=== PATIENT | female | born 1990 | race Hispanic/Latino ===

== ENCOUNTER 2020-02-11 04:46 | Emergency (ER) | payer SELFPAY ==
[~2020-02-11] VITALS: Ht 162.6 cm; Wt 54.4 kg
--- NOTE | 2020-02-11 04:54 | Emergency Department Note ---
History of Present Illnes History of Present Illness Chief Complaint: General Medicine Complaints History of Present Illness This is a 29 year old female with abrupt onset of palpitatoins and CP prior to arrival. . Historian: Patient Arrival Mode: Car Onset (how long ago): minute(s) Location: substernal Radiation: Reports non-radiation Severity: mild Onset quality: sudden Duration (how long): hour(s) Timing of current episode: constant Progression: waxing and waning Chronicity: new Context: Denies recent illness, Denies recent surgery, Denies recent immobi lization, Denies recent travel, Denies trauma/injury, Denies new medications, Denies hx of DVT/PE, Denies non-compliance w/ medications, Denies other Relieving factors: none Exacerbating factors: none Associated symptoms: Reports chest pain Treatments prior to arrival: none Past Medical/Family History Physician Review I have reviewed the patient's past medical and family history. Any updates have been documented here. Past Medical History Recent Fever: No Clinical Suspicion of Infectio: No New/Unexplained Change in Ment: No Past Medical History: None Past Surgical History: None Social History Smoking Cessation: Never Smoker Alcohol Use: None Any Illegal Drug Use: No Review of Systems Review of Systems Constitutional: Reports no symptoms EENTM: Reports no symptoms Cardiovascular: Reports chest pain, Reports palpitations Respiratory: Reports no symptoms Gastrointestinal: Reports no symptoms Genitourinary: Reports no symptoms Musculoskeletal: Reports no symptoms Integumentary: Reports no symptoms Neurological: Reports no symptoms Psychological: Reports no symptoms Endocrine: Reports no symptoms Hematological/Lymphatic: Reports no symptoms Physical Exam Related Data Allergies: Coded Allergies: No Known Allergies (Unverified , 02/11/20) Vital signs reviewed: Yes Physical Exam CONSTITUTIONAL Constitutional: Present well-developed, Present well-nourished HENT HENT: Present normocephalic, Present atraumatic, Present oropharynx clear/moist, Present nose normal HENT L/R: Present left ext ear normal, Present right ext ear normal EYES Eyes: Reports PERRL, Reports conjunctivae normal NECK Neck: Present ROM normal PULMONARY Pulmonary: Present effort normal, Present breath sounds normal CARDIOVASCULAR Cardiovascular: Present regular rhythm, Present heart sounds normal, Present capillary refill normal, Present normal rate GASTROINTESTINAL Abdominal: Present soft, Present nontender, Present bowel sounds normal GENITOURINARY Genitourinary: Present exam deferred SKIN Skin: Present warm, Present dry MUSCULOSKELETAL Musculoskeletal: Present ROM normal NEUROLOGICAL Neurological: Present alert, Present oriented x 3, Present no gross motor or sensory deficits PSYCHOLOGICAL Psychological: Present mood/affect normal, Present judgement normal, Present other Results Laboratory Lab results reviewed: Yes Imaging Imaging results reviewed: Yes Procedures 12 Lead ECG Interpretation ECG Interpretation : ECG: ECG 1 Mica Inspector: Interpreted by ED physician Date: Feb 11, 2020 Time: 05:02 Prior ECG tracings: reviewed Rhythm: sinus rhythm Rate: normal BPM: 89 QRS axis: normal ST segments normal: Yes T waves normal: Yes T waves flattening: all, V1-V6 Other findings: no other findings Clinical Impression: non-specific ECG Assessment & Plan Medical Decision Making MDM Diff Dx : ACS, palpitaitons, anemia, anxiety, illicit drug use, PTX Assessment & Plan Final Impression: (1) Palpitations (2) Anxiety Depart Disposition: HOME, SELF-CARE CAROLINAMEREDITH Feb 11, 2020 04:54
[2020-02-11] MEDS ORDERED: ASPIRIN 81 MG CHEW TAB PO ONE (05:00)
[2020-02-11 05:08] LABS: BASOPHILS % 0.5 % (0.0-1.0); EOSINOPHILS % 0.1 % (0.0-6.0); HEMATOCRIT 36.1 % (34.2-44.1); HEMOGLOBIN 12.3 g/dL (12.0-16.0); LYMPHOCYTES # (AUTO) 2.8 (1.0-3.2); LYMPHOCYTES % 35.7 % (18.0-39.1); MEAN CORPUSCULAR HEMOGLOBIN 28.9 pg (28-32); MEAN CORPUSCULAR HGB CONC 34.1 g/dL (31-35); MEAN CORPUSCULAR VOLUME 84.7 fL (81-99); MONOCYTES # (AUTO) 0.8 (0.2-0.8); MONOCYTES % 9.8 % (4.4-11.3); NEUTROPHILS # (AUTO) 4.2 (2.1-6.9); NEUTROPHILS % 53.6 % (38.7-80.0); PLATELET COUNT 229 x10e3/uL (140-360); RED BLOOD COUNT 4.26 x10e6/uL (3.6-5.1); RED CELL DISTRIBUTION WIDTH 14.6 % (11.7-14.4)
--- NOTE | 2020-02-11 05:10 | NUR ---
pt given specimen cup to collect urine per orders. pt went bathroom,then moments later knocked on triage door stating that she did not get a specimen cup. to bathroom c patient, specimen cup found in trash. second cup provided for specimen. pt repeated also placed cup in trash and then came to triage door stating "i dont know why you are exceptioning me." "Those things that they said arent nice, and my parts analyst will hear about it too." pt noted anxious and paranoid. attempted to calm down. pt escorted to room [address] on bedside monitor.
--- OUTSIDE RECORDS SUMMARY | 2020-02-11 05:17 | XMS REPORT | Continuity of Care Document ---
Author Author [facility] t Organization [facility] Address [address] [place] [address] Phone Unavailable Care Team Providers Care Supplier Quality Name Role Phone EVANGELINA KELLOGG M.D. Attphys Unavailable DUNIA MORROW M.D. Attphys Unavailable NANNETTE DE LEON M.D. Attphys Unavailable OMAR FERREIRA M.D. Attphys Unavailable VINOD CRUZ M.D. Attphys Unavailable AVIS BOSS M.D. Attphys Unavailable Katie Parish Attphys Payers Payer Name Policy Type Policy Number Effective Date Expiration Date S ource Problems Condition Name Condition Details Condition Category Status Onset Date Resolution Date Last Treatment Date Treating Clinician Comments Source DIFFICULTY BREATHING DIFF ICULTY BREATHING Active 02/01/2016 [facility] Active 2016-02-01 00:00:00 2016-02-19 11:20:00 [facility] History of anxiety History of anxiety Problem Resolved [facility] History of depression History of depression Problem Resolved [facility] Problem Active [facility] Depression [facility]omnia Ins[facility] Limited care Limited care Problem Active [facility] Anemia in Anemia in Problem Active [facility] Vaginal discharge Vaginal discharge Problem Active [facility] follow-up follow-up Problem Active [facility] Discharge Diagnosis: Atypical chest pain Discharge Diagnosis: Atypical chest pain 02/01/2016 02/04/2016 [facility] Problem 2016-02-01 05:00:00 2016-02-04 04:28:15 2016-02-04 04:28:15 [facility] Discharge Diagnosis: Anxiety D ischarge Diagnosis: Anxiety 02/01/2016 02/04/2016 [facility] Problem 2015-03 05:00:00 2016-02-04 04:28:15 2016-02-04 04:28:15 [facility] Allergies, Adverse Reactions, Alerts Allergy Name Allergy Type Status Severity Reaction(s) Onset Date Inacti ve Date Treating Clinician Comments Source No Known Allergies DA Active U 2017-11-03 00:00:00 [facility] Social History Smoking Status Start Date Stop Date Source Social History [facility] Medications Ordered Medication Name Filled Medication Name Start Date Stop Da te Current Medication? Ordering Clinician Indication Dosage Frequency Signature (SIG) Comments Components Source Sertraline HCl - 25 MG Oral Tablet Sertraline HCl - 25 MG Or al Tablet 2019-05-26 00:00:00 Yes EVANGELINA KELLOGG M.D. QD TAKE 1 TABLET ROYAL Y DIRECTED. [facility] Ferrous Sulfate 325 (65 Fe) MG Oral Tablet Ferrous Sul fate 325 (65 Fe) MG Oral Tablet 2019-03-13 00:00:00 Yes DUNIA MORROW M.D. QD TAKE 1 TABLET DAILY DIRECTED. [facility] Colace 100 MG Oral Capsule Colace 100 MG Oral Capsule 2019-03-13 00:0 0:00 Yes DUNIA MORROW M.D. Q0.5D TAKE 1 CAPSULE TWICE GURPREET LY NEEDED. [facility] Sertraline HCl - 50 MG Oral Tablet Sertraline HCl - 50 MG Or al Tablet 2019-02-11 00:00:00 Yes AVIS BOSS M.D. QD TAKE 1 TABLET DAILY A S DIRECTED. [facility] Tylenol PM Extra Strength 500-25 MG Oral Tablet Tyleno l PM Extra Strength 500-25 MG Oral Tablet 2019-02-11 00:00:00 Yes AVIS BOSS M.D. TAKE 1 TABLET BY MOUTH AT BEDTIME NEEDED FOR SLEEP [facility] Sodium Chloride 0.154 MEQ/ML Injectable Solution 2016-02-01 15:4 7:00 No 1,000 mL, 2,000 ml/hr, Infus e Over: 30 minutes, Route: IV, ONCE, Priority: STAT, Dosing Weight 54.545 kg, Start date: 02/01/16 10:47:00 CDT, Duration: 1 doses or times, Stop date: 02/01/16 10:47:00 CDT Hubert Jean-Baptiste Alprazolam 0.5 MG Oral Tablet [Xanax] 2016-02-01 15:38:00 N o Notes: With food or milk (Same as: Xanax) Memor michael Jean-Baptiste TABS TABS Yes [facility] Immunizations Ordered Immunization Name Filled Immunization Name Date Status Comments Source Tdap (Adacel) 2019-02-11 16:31:00 Completed Un [facility] Vital Signs Vital Name Observation Time Observation Value Comments Source Systolic blood pressure 2019-05-26 14:20:00 115 mm[Hg] Loca tion: RUE; Position: Sitting [facility] Diastolic blood pressure 2019-05-26 14:20:00 74 mm[Hg] Loc ation: RUE; Position: Sitting [facility] Body height 2019-05-26 14:20:00 64 [in_us] [facility] Weight 2019-05-26 14:20:00 140.25 [lb_av] [facility] Body mass index (BMI) [Ratio] 2019-05-26 14:20:00 24.07 kg/m2 [facility] Body temperature 2019-05-26 14:20:00 98.6 [degF] Method: Temporal [facility] Heart Rate 2019-05-26 14:20:00 80 /min [facility] Respiratory rate 2019-05-26 14:20:00 16 /min [facility] BP Systolic 2019-03-10 14:24:00 132 mm[Hg] Location: RUE; Positi on: Sitting [facility] BP Diastolic 2019-03-10 14:24:00 77 mm[Hg] Location: RUE; Positi on: Sitting [facility] Height 2019-03-10 14:24:00 64 [in_us] [facility] Weight 2019-03-10 14:24:00 148.25 [lb_av] [facility] Body Mass Index Calculated 2019-03-10 14:24:00 25.45 kg/m2 [facility] Temperature 2019-03-10 14:24:00 97.7 [degF] Method: Temporal [facility] Heart Rate 2019-03-10 14:24:00 97 /min [facility] Respiration Rate 2019-03-10 14:24:00 16 /min [facility] BP Systolic 2019-02-11 15:42:00 111 mm[Hg] Location: ANEL; Positi on: Sitting [facility] BP Diastolic 2019-02-11 15:42:00 74 mm[Hg] Location: LUJosh; Positi on: Sitting [facility] Height 2019-02-11 15:42:00 64 [in_us] [facility] Weight 2019-02-11 15:42:00 145 [lb_av] [facility] Body Mass Index Calculated 2019-02-11 15:42:00 24.89 kg/m2 [facility] Temperature 2019-02-11 15:42:00 98.1 [degF] Method: Temporal [facility] Heart Rate 2019-02-11 15:42:00 90 /min [facility] Respiration Rate 2019-02-11 15:42:00 16 /min [facility] Systolic (mm Hg) 2016-02-01 16:28:00 [facility] [facility] [place] Diastolic (mm Hg) 2016-02-01 16:28:00 [facility] [place] Heart Rate 2016-02-01 16:28:00 [facility] Temperature Oral (F) 2016-02-01 16:28:00 98 F [facility] Respitory Rate 2016-02-01 16:28:00 [facility] [place] BMI Calculated 2016-02-01 15:02:00 [facility] [place] Weight 2016-02-01 15:02:00 [facility] Temperature Oral (F) 2016-02-01 15:02:00 98.2 F [facility] Height 2016-02-01 15:02:00 157.48 cm [facility] Respitory Rate 2016-02-01 15:02:00 [facility] [place] Heart Rate 2016-02-01 15:02:00 [facility] Systolic (mm Hg) 2016-02-01 15:02:00 [place] rial [place] Diastolic (mm Hg) 2016-02-01 15:02:00 Mem [facility] [place] Procedures Procedure Date / Time Performed Performing Clinician Kassi CAMERONath - Affirm VPIII (BV Panel) 2019-05-26 00:00:00 [facility] [] STREPTOCOCCUS, GROUP B CULTURE (Genital Strep Screen) 2 00:00:00 [facility] [[facility]] RPR 2019-02-11 00:00:00 [facility] [[facility]] CBC (INCLUDES DIFF/PLT) 2019-02-11 00:00:00 [facility] [] HIV AB, HIV 1/2, EIA, WITH REFLEXES 2019-02-11 00:00:00 [facility] [[facility]] CULTURE, URINE, ROUTINE 2019-02-11 00:00:00 [facility] [] Drug Screen Urine (9 Drugs) 2019-02-11 00:00:00 [facility] Encounters Start Date/Time End Date/Time [facility] ID Source 2019-06-02 10:15:00 2019-06-02 10:15:00 Appointment; EVANGELINA KELLOGG M.D. DUBOVOY, VERA, M.D. [facility] [id number] [facility] 2019-05-26 11:30:00 2019-05-26 11:30:00 Appointment; EVANGELINA KELLOGG M.D. DUBOVOY, VERA, M.D. [facility] Ob[facility]s [facility] [id number] [facility] 2019-03-16 09:00:00 2019-03-16 09:00:00 Appointment; DUNIA OTT M.D. WAINWRIGHT, ALEXANDER, M.D. [facility] [id number] [facility] 2019-03-10 13:30:00 2019-03-10 13:30:00 Appointment; DUNIA OTT M.D. WAINWRIGHT, ALEXANDER, M.D. [facility] [id number] [facility] 2019-03-10 13:30:00 2019-03-10 13:30:00 Appointment; NANNETTE DE LEON M.D. BAKER, ANDREA, M.D. [facility] UTP [id number] [facility] 2019-03-03 10:15:00 2019-03-03 10:15:00 Appointment; ENID FERREIRA M.D. HUANG, CHENCHEN, M.D. [facility] UTP [id number] [facility] 2019-02-28 15:45:00 2019-02-28 15:45:00 Appointment; WOLFGANG CRUZ M.D. GUTIERREZ, JULIE, M.D. [facility] [id number] [facility] 2019-02-11 15:15:00 2019-02-11 15:15:00 Appointment; AVIS BOSS M. D. NGUYEN, HA, M.D. [facility] Ob[facility]s [facility] [id number] [facility] 2016-02-01 09:52:00 2016-02-01 11:29:00 Outpatient Elodia Parish [facility] [place] [id number] Results Test Description Test Time Test Comments Results Result Comments Source . [facility] - Affirm VPIII (BV Panel) 2019-05-26 00:00:00 Test Item Case (test code = Case) Click ImageLink button for report. N [facility]] CBC (INCLUDES DIFF/PLT)2019-03-10 14:42:01* Test Item Value Reference Range Interpretation Comments WBC (test code = 6690-2) 10.3 {K/CMM} 3.7-10.4 RBC; Below Low Threshold (test code = 789-8) 3.76 {M/CMM} 4.20-5.40 Hgb; Below Low Threshold (test code = 718-7) 10.7 g/dl 12.0-16.0 Hct; Below Low Threshold (test code = 77110-8) 31.6 % 36.0-48 .0 MCV (test code = 787-2) 84.2 fL 80.0-98.0 MCH (test code = 785-6) 28.5 pg 27.0-31.0 MCHC (test code = 786-4) 33.8 g/dl 32.0-36.0 RDW; Above High Threshold (test code = 788-0) 15.6 % 11.5-14. 5 Platelet (test code = 26012-1) 246 {K/CMM} 133-450 Mean Platelet Volume (test code = 54132-4) 8.7 fL 7.4-10.4 [facility]] [id number] 14:42:01* Test Item Value Reference Range Interpretation Comments Segmented Neutrophils; Above High Threshold (test code = 265 05-8) 75.2 % 45.0-75.0 Monocytes (test code = 05418-2) 4.7 % 2.0-12.0 Lymphocytes; Below Low Threshold (test code = 78079-4) 19.4 % 20.0-40.0 Eosinophils (test code = 11321-9) 0.4 % 0.0-4.0 Basophils (test code = 706-2) 0.3 % 0.0-1.0 Segs-Bands # (test code = 30019-0) 7.8 {K/CMM} 1.5-8.1 Lymphocytes # (test code = 61417-8) 2.0 {K/CMM} 1.0-5.5 Monocytes # (test code = 26309-1) 0.5 {K/CMM} 0.0-0.8 [facility][] HIV AB, HIV 1/2, EIA, WITH [id number] 14:42:01* Test Item Value Reference Range Interpretation Comments HIV Ag/Ab 4th Gen (test code = 30678-7) Negative Negative HIV test results should be considered positive only when both the screening andthe confirmatory tests are positive. A negative confirmatory test in patientswith a positive screening test does not exclude HIV infection. If clincallywarranted, an HIV RNA quantitative test should be ordered. [facility][H] Drug Screen Urine (9 Drugs)2019-03-10 14:42:01 * Test Item Value Reference Range Interpretation Comments U Amph Scr (test code = 3349-8) Negative Negative Urine Barbiturate Screen (test code = 3377-9) Negative Negative Urine Benzodiazepine Screen (test code = 3390-2) Negative Negat isai Urine Cannabinoid Screen (test code = 3427-2) Negative Negative Urine Cocaine Screen (test code = 3397-7) Negative Negative Urine Methadone Screen (test code = 3773-9) Negative Negative Urine Opiate Screen (test code = 3879-4) Negative Negative Urine Phencyclidine Screen (test code = 3936-2) Negative Negati ve Urine Propoxyphene Screen (test code = 01298-4) Negative Negati ve Urine Drug Screen Note (test code = Urine Drug Screen Note) See Not e Drugs reported as positive have not been confirmed by a secondmethod and should be used for medical purposes only. To orderconfirmation, contact laboratory.note: Below are cut-off concentrations for all urine drugs ofabuse performed in the laboratory. Some drugs listed in the tablemay not be included in this panel.Description Cut-off concentration Amphetamine 1000 ng/mLBarbiturates 200 ng/mLBenzodiazepines 200 ng/mLCocaine metabolites 300 ng/mLOpiates 300 ng/mLPhencyclidine 25 ng/mLPropoxyphene 300 ng/mLMarijuana metabolites 50 ng/mLMethadone 300 ng/mLUrine alcohol 20 mg/dL [facility]] [id number] 14:42:01* Test Item Value Reference Range Interpretation Comments RPR (test code = 07605-4) Non-Reactive Non-Reactive [facility][] STREPTOCOCCUS, GROUP B CULTURE (Genital Strep Screen)2019-03-10 14:42:01* Test Item Value Reference Range Interpretation Comments FINAL REPORT (test code = FINAL REPORT) No Beta-Hemolytic St reptococci Isolated Source Details: WTS [facility]iciansGlucose (Point of Care In Office)2019-03-10 14:31:00* Test Item Value Reference Range Interpretation Comments Glucose POC [facility] (test code = Glucose POC [facility]) [address] [facility] PhysiciansDRUGS OF ABUSE SCREEN [id number] 03:54:00* Test Item Value Reference Range Interpretation Comments UA PH DIPSTICK (test code = RAEGAN) 6.5 5.0-8.0 URN COCAINE (test code = COCAURN) NEGATIVE <300 ng/mL URN CANNABINOIDS (test code = CANNABURN) NEGATIVE <50 ng/mL URN AMPHETAMINE (test code = AMPHETURN) POSITIVE <1000 ng/mL A This test provides only a preliminary test result. A morespecific alternate chemical method must be used in order toobtain a confirmed analytical result. Gas chromatography/mass spectrometry (GC/MS) is thepreferred confirmatory method. Other chemical confirmationmethods are available. Clinical consideration and professional judgment should be applied to any drug of abusetest result, particularly when preliminary positive resultsare used.Unconfirmed screening results must not be used fornon-medical purposes (e.g., employment testing, legaltesting). URN BARBITURATE (test code = BARBITURN) NEGATIVE <200 ng/mL URN BENZODIAZEPINE (test code = BENZOURN) POSITIVE <200 ng/mL A This test provides only a preliminary test result. A morespecific alternate chemical method must be used in order toobtain a confirmed analytical result. Gas chromatography/mass spectrometry (GC/MS) is thepreferred confirmatory method. Other chemical confirmationmethods are available. Clinical consideration and professional judgment should be applied to any drug of abusetest result, particularly when preliminary positive resultsare used.Unconfirmed screening results must not be used fornon-medical purposes (e.g., employment testing, legaltesting). URN OPIATES (test code = OPIATURN) POSITIVE <300 ng/mL A This test provides only a preliminary test result. A morespecific alternate chemical method must be used in order toobtain a confirmed analytical result. Gas chromatography/mass spectrometry (GC/MS) is thepreferred confirmatory method. Other chemical confirmationmethods are available. Clinical consideration and professional judgment should be applied to any drug of abusetest result, particularly when preliminary positive resultsare used.Unconfirmed screening results must not be used fornon-medical purposes (e.g., employment testing, legaltesting). URN PHENCYCLIDINE (PCP) (test code = PHENCURN) NEGATIVE <25 ng/ mL URN METHADONE (test code = METHAURN) NEGATIVE <300 ng/mL DRUGS OF ABUSE SCREEN [id number] 03:53:00* Test Item Value Reference Range Interpretation Comments UA PH DIPSTICK (test code = RAEGAN) 5.0-8.0 URN COCAINE (test code = COCAURN) NEGATIVE <300 ng/mL URN CANNABINOIDS (test code = CANNABURN) NEGATIVE <50 ng/mL URN AMPHETAMINE (test code = AMPHETURN) POSITIVE <1000 ng/mL A This test provides only a preliminary test result. A morespecific alternate chemical method must be used in order toobtain a confirmed analytical result. Gas chromatography/mass spectrometry (GC/MS) is thepreferred confirmatory method. Other chemical confirmationmethods are available. Clinical consideration and professional judgment should be applied to any drug of abusetest result, particularly when preliminary positive resultsare used.Unconfirmed screening results must not be used fornon-medical purposes (e.g., employment testing, legaltesting). URN BARBITURATE (test code = BARBITURN) NEGATIVE <200 ng/mL URN BENZODIAZEPINE (test code = BENZOURN) POSITIVE <200 ng/mL A This test provides only a preliminary test result. A morespecific alternate chemical method must be used in order toobtain a confirmed analytical result. Gas chromatography/mass spectrometry (GC/MS) is thepreferred confirmatory method. Other chemical confirmationmethods are available. Clinical consideration and professional judgment should be applied to any drug of abusetest result, particularly when preliminary positive resultsare used.Unconfirmed screening results must not be used fornon-medical purposes (e.g., employment testing, legaltesting). URN OPIATES (test code = OPIATURN) POSITIVE <300 ng/mL A This test provides only a preliminary test result. A morespecific alternate chemical method must be used in order toobtain a confirmed analytical result. Gas chromatography/mass spectrometry (GC/MS) is thepreferred confirmatory method. Other chemical confirmationmethods are available. Clinical consideration and professional judgment should be applied to any drug of abusetest result, particularly when preliminary positive resultsare used.Unconfirmed screening results must not be used fornon-medical purposes (e.g., employment testing, legaltesting). URN PHENCYCLIDINE (PCP) (test code = PHENCURN) NEGATIVE <25 ng/ mL URN METHADONE (test code = METHAURN) NEGATIVE <300 ng/mL URINALYSIS [id number] 03:26:00* Test Item Value Reference Range Interpretation Comments UA COLOR (test code = COLU) YELLOW YELLOW UA APPEARANCE (test code = APPU) Cloudy CLEAR A UA GLUCOSE DIPSTICK (test code = DGLUU) NEGATIVE mg/dL NEGATIVE UA BILIRUBIN DIPSTICK (test code = BILU) NEGATIVE mg/dL NEGATIVE UA KETONE DIPSTICK (test code = KETU) 150 (4+) mg/dL NEGATIVE A UA SPECIFIC GRAVITY (test code = SGU) 1.034 1.001-1.035 UA BLOOD DIPSTICK (test code = YADIRA) Negative mg/dL NEGATIVE UA PH DIPSTICK (test code = RAEGAN) 6.5 5.0-8.0 UA PROTEIN DIPSTICK (test code = PROU) 100 (2+) mg/dL NEGATIVE A UA UROBILINIOGEN DIPSTICK (test code = URO) 12.0 (3+) mg/dL NEGATIV E A UA NITRITE DIPSTICK (test code = RADHA) NEGATIVE NEGATIVE UA LEUKOCYTE ESTERASE W REFLEX (test code = LEUUR) 500 Corrine/u L (3+) Corrine/uL NEGATIVE A UA WBC (test code = WBCU) 151-200 per HPF 0-5 A UA RBC (test code = RBCU) 11-20 #/HPF 0-5 A UA EPITHELIAL CELLS (test code = EPIU) MANY per HPF FEW UA BACTERIA (test code = BACU) MANY #/HPF NONE A UA MUCUS (test code = MUCU) MANY #/LPF FEW A Urine Source? [facility] [id number] 02:39:00* Test Item Value Reference Range Interpretation Comments WHITE BLOOD CELL (test code = WBC) 6.3 K/mm3 4.5-12.5 N RED BLOOD CELL (test code = RBC) 4.02 mill/mm3 3.7-5.2 N HEMOGLOBIN (test code = HGB) 12.3 gram/dL 11.5-15.5 N HEMATOCRIT (test code = HCT) 36.8 % 36.0-46.0 N MEAN CELL VOLUME (test code = MCV) 91.5 fL 80-98 N MEAN CELL HGB (test code = MCH) 30.6 picogram 27.0-33.0 N MEAN CELL HGB CONCETRATION (test code = MCHC) 33.4 gram/dL 33.0-36. 0 N RED CELL DISTRIBUTION WIDTH (test code = RDW) 13.4 % 11.6-16. 2 N PLATELET COUNT (test code = PLT) 264 K/mm3 150-450 N MEAN PLATELET VOLUME (test code = MPV) 11.0 fL 6.7-11.0 N BASIC METABOLIC [id number] 02:06:00* Test Item Value Reference Range Interpretation Comments SODIUM (test code = NA) 140 mmol/L 136-145 N POTASSIUM (test code = K) 3.7 mmol/L 3.5-5.1 N CHLORIDE (test code = CL) 108.0 mmol/L 98-107 H CARBON DIOXIDE (test code = CO2) 21.0 mmol/L 21-32 N ANION GAP (test code = GAP) 14.7 10-20 N GLUCOSE (test code = GLU) 68 mg/dL 74-106 L BLOOD UREA NITROGEN (test code = BUN) 8 mg/dL 7-18 N GLOMERULAR FILTRATION RATE (test code = GFR) > 60 mL/min >=60 Estimated GFR by using Modified MDRD formula.Chronic kidney disease is defined as either kidney damageor GFR <60 mL/min/1.73 m2 for >3 months. CREATININE (test code = CREAT) 0.50 mg/dL 0.55-1.02 L Note change in reference range due to change in reagent. BUN/CREATININE RATIO (test code = BUN/CREA) 14.6 10-20 N CALCIUM (test code = CA) 8.6 mg/dL 8.5-10.1 N HCG SERUM [id number] 02:06:00* Test Item Value Reference Range Interpretation Comments HCG SERUM BETA (test code = HCG) 92711.0 mIU/mL 0-3 H Interfering substances present in the serum of somepatients may cause a false-positive result in this assay.Questionable elevations in serum hCG should be confirmedwith a urine hCG. Suspected Trophoblastic Neoplasms shouldnot be diagnosed based on serun hCG/beta hCG alone. Theymust be confirmed by clinical history and tissue diagnosis.INTERPRETATION:B-HCG LEVELS <5 SHOULD BE CONSIDERED "NEGATIVE." *WHEN BODERLINE RESULTS ARE ENCOUNTERED,PATIENT SAMPLESSHOULD BE REDRAWN 48 HOURS. 0-1 WEEKS AFTER CONCEPTION 5-50 MIU/ML1-2 WEEKS AFTER CONCEPTION 50-500 MIU/ML2-3 WEEKS AFTER CONCEPTION 100 -5,000 MIU/ML3-4 WEEKS AFTER CONCEPTION 500-10,000 MIU/ML4-5 WEEKS AFTER CONCEPTION 1000 -50,000 MIU/ML5-6 WEEKS AFTER CONCEPTION 10,000-100,000 MIU/ML6-8 WEEKS AFTER CONCEPTION 15,000- 200,000 MIU/ML2-3 MONTHS AFTER CONCEPTION 10,000-100,000 MIU/ML BASIC METABOLIC [id number] 01:46:00* Test Item Value Reference Range Interpretation Comments SODIUM (test code = NA) 140 mmol/L 136-145 N POTASSIUM (test code = K) 3.7 mmol/L 3.5-5.1 N CHLORIDE (test code = CL) 108.0 mmol/L 98-107 H CARBON DIOXIDE (test code = CO2) mmol/L 21-32 ANION GAP (test code = GAP) 10-20 GLUCOSE (test code = GLU) mg/dL 74-106 BLOOD UREA NITROGEN (test code = BUN) mg/dL 7-18 GLOMERULAR FILTRATION RATE (test code = GFR) mL/min >=60 CREATININE (test code = CREAT) mg/dL 0.55-1.02 BUN/CREATININE RATIO (test code = BUN/CREA) 10-20 CALCIUM (test code = CA) mg/dL 8.5-10.1 HCG SERUM [id number] 01:46:00* Test Item Value Reference Range Interpretation Comments HCG SERUM BETA (test code = HCG) mIU/mL 0-3 [id number] 01:46:00* Test Item Value Reference Range Interpretation Comments ALCOHOL (test code = ALC) < 3 mg/dL 0.0-3.0 N -- INTERPRETIVE DATA NOTE: POSITIVE SCREENING RESULTS SHOULD BE CONSIDERED PRESUMPTIVE.WHEN COLLECTED FOR MEDICAL PURPOSES ONLY. SPECIMEN WILL NOTBE COLLECTED BY CHAIN OF CUSTODY.IF A CONFIRMATION OF POSITIVE RESULTS IS DESIRED, ACONFIRMATION TEST MUST BE REQUESTED BY THE PHYSICIAN AT ANADDITIONAL CHARGE TO THE PATIENT. - US PREG 1ST [id number] 01:40:00 Name: DALTON HARRIS [facility] : 1990 Age/S: 28 / F [address] [facility] Unit #: [id number] Loc: [place] [address] Phys: Juan Hale SUPERVISOR DELIVERY DEPARTMENT Acct: [id number] Dis Date: Status: REG ER PHONE #: [phone] Exam Date: 10/21/2018 0112 FAX #: [phone] Reason: VAGINAL BLEEDING/PELVIC PAIN EXAMS: CPT CODE: [id number] US PREG 1ST TRIMTR [id number] DICTATION LOCATION: 8 HISTORY: Female, 28 years of age with pelvic pain and vaginal bleeding during 2nd trimester EXAM: OB ULTRASOUND, LIMITED COMPARISON: None for this . TECHNIQUE: Real-time sonography was performed transabdominally with the 4 MHz transducer. FINDINGS: Number: Mccoy Presentation: Transverse Placenta: anterior, Grade 1. No placental abruption or subchorionic hemorrhage. There appears to be marginal placenta previa. Cervix: Closed, measuring 2.93 cm length. MILLIE: Not calculated, how ever amniotic fluid volume is subjectively adequate. Ovaries: Right ovary is normal size measuring 2.1 x 1.6 x 1.8 cm with arterial flow docum ented with Doppler. Left ovary is not visualized. No adnexal mass. Anatomic Survey: No formal anatomic survey was done. heart ra te: 134 BPM Average sonographic age of the fetus is 17 weeks 2 days with E DC of 03/29/2019 based on the following: Biparietal diameter: 17 wee ks 2 days Head circumference: 17 weeks 2 days Abdominal circumferenc e: 17 weeks 2 days Femur length: 17 weeks 2 days Estimated f etal weight: 189.12 grams +/- 28.37 grams weight percentile: Less th an 3 % based on LMP 05/28/2018, gestational age by dates 20 weeks 6 days, ED D by dates 03/04/2019. IMPRESSION: 1. Single living intr auterine fetus at 17 weeks 2 days sonographic age. Ultrasound age is les s than dates and weight percentile is low at less than 3%. Incorre ct dates versus IUGR. 2. No subchorionic hemorrhage or placental abrupti on. 3. There is questionable marginal placenta previa and the measuremen t of the cervix is short at 2.93 cm. Recommend translabial or tr ansvaginal ultrasound to further evaluate these findings. PAGE 1 Signed Report (CONTINUED) Name: DALTON HARRIS [facility] : 1990 Age/S: 28 / F [address] Unit #: [id number] Loc: [place] [address] Phys: Juan Hale SUPERVISOR DELIVERY DEPARTMENT Acct: [id number] Dis Date: S tatus: REG ER PHONE #: [phone] Exam Da te: 10/21/2018111 FAX #: [phone] Reason: VAGINA L BLEEDING/PELVIC PAIN EXAMS: CPT CODE: [id number] US PREG 1ST TRIMTR 72813 <Continued> at 0140 Reported and signed by: Louise Enamorado MD CC: Lv Winters MD; Juan Hale NP Technologist: VINICIUS BOSS RDMS [facility] Date/Time: 10/21/2018 (0140) [email or web address] Orig Print D/T: S: 10/21/2018 (0144) Probe: PAGE 2 Signed Report - DUP AB/PEL/SC [id number] 01:40:00 Name: DALTON HARRIS D [facility] : 1990 Age/S: 28 / F [address] Unit #: [id number] Loc: [place] [address] Phys: Juan Hale SUPERVISOR DELIVERY DEPARTMENT Acct: [id number] Dis Date: Status: REG ER PHONE #: [phone] Exam Date: 10/21/2018111 FAX #: [phone] Reason: PELVIC PAIN EXAMS: CPT CODE: [id number] DUP AB/PEL/SC COMP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
--- OUTSIDE RECORDS SUMMARY | 2020-02-11 05:17 | XMS REPORT | Continuity of Care Document ---
Author Author Hubert [facility] [employer] Address Unknown Phone Unavailable Care Team Providers Care Branch Mechanic Name Role Phone [employer] Information CLEAR Unavailable Un available Problems Problem Status Onset Date Classification Date Reported Comments Source Discharge Diagnosis: Atypical chest pain 02/01/2016 02/04/2016 [facility] Discharge Diagnosis: Anxiety 02/01/2016 02/04/2016 [facility] DIFFICULTY BREATHING Active 02/01/2016 [facility] Medications Medication Details Route Status Patient Instructions Ordering Provider Order Date Source Sodium Chloride 0.154 MEQ/ML Injectable Solution 1,000 mL, 2,000 ml/hr, Infuse Over: 30 minutes, Route: IV, ONCE, Priority: STAT, Dosing Weight 54.545 kg, Start date: 02/01/16 10:47:00 CDT, Duration: 1 doses or times, Stop date: 02/01/16 10:47:00 CDT Inactive 02/01/2016 [facility] Alprazolam 0.5 MG Oral Tablet [Xanax] Notes: With food or milk (Same as: Xanax) Inactive 02/01/2016 [facility] Allergies, Adverse Reactions, Alerts No Known Medication Allergies Immunizations No Data Provided for This Section Results Order Name Results Value Reference Range Date Interpretation Comments Source URINE AND STOOL UA Urobilinogen <=1.0 mg/dL 0.1 - 1.0 02/01/2016 [facility] URINE AND STOOL UA pH 5.0 5.0 - 8.0 02/01/2016 [facility] URINE AND STOOL UA Ketones Negative mg/dL Negative mg/dL 02/01/2016 [facility] URINE AND STOOL UA Glucose Negative mg/dL Negative mg/dL 02/01/2016 [facility] URINE AND STOOL UA Protein Negative mg/dL Negative mg/dL 02/01/2016 [facility] URINE AND STOOL UA Spec Grav 1.023 <=1.030 02/01/2016 [facility] URINE AND STOOL UA Turbidity Clear (02/01/16 10:11 AM) Clear 02/01/2016 [facility] URINE AND STOOL UA Color Yellow *NA* (02/01/16 10:11 AM) Yellow 02/01/2016 [facility] URINE AND STOOL UA RBC 2 0 - 2 02/01/2016 [facility] URINE AND STOOL UA Leuk Est Negative (02/01/16 10:11 AM) Negative 02/01/2016 [facility] URINE AND STOOL UA Bili Negative *NA* (02/01/16 10:11 AM) Negative 02/01/2016 [facility] URINE AND STOOL UA WBC 1 0 - 5 02/01/2016 [facility] URINE AND STOOL UA Sq Epi Many /LPF Few /LPF 02/01/2016 [facility] URINE AND STOOL UA Blood Negative (02/01/16 10:11 AM) Negative 02/01/2016 [facility] URINE AND STOOL UA Nitrite Negative (02/01/16 10:11 AM) Negative 02/01/2016 [facility] URINE CHEM U Preg Negat isai (02/01/16 10:11 AM) Negative 02/01/2016 [facility] Pathology Reports No Data Provided for This Section Diagnostic Reports Report Value Date Source Chest 2 views DX EXAM: Chest 2 views DX DATE: 02/01/2016 10:15 AM CDT INDICATION: Chest pain COMPARISON: None. IMPRESSION: Grossly normal cardiac silhouette and mediastinum. No focal consolidation, significant pleural effusion or pneumothorax. SL: [id number] 02/01/2016 [facility] Consultation Notes No Data Provided for This Section Discharge Summaries No Data Provided for This Section History and Physicals No Data Provided for This Section Vital Signs Vital Sign Value Date Comments Source Systolic (mm Hg) 106 02/01/2016 [facility] Diastolic (mm Hg) 62 02/01/2016 [facility] Heart Rate 88 02/01/2016 [facility] Temperature Oral (F) 98 F 02/01/2016 [facility] Respitory Rate 16 02/01/2016 [facility] BMI Calculated 21.99 02/01/2016 [facility] Weight 54.545 02/01/2016 [facility] Temperature Oral (F) 98.2 F 02/01/2016 [facility] Height 157.48 cm 02/01/2016 [facility] Respitory Rate 18 02/01/2016 [facility] Heart Rate 83 02/01/2016 [facility] Systolic (mm Hg) 104 02/01/2016 [facility] Diastolic (mm Hg) 62 02/01/2016 [facility] Encounters Location Location Details Encounter Type Encounter Number Reason For Visit Attending Provider ADM Date DC Date Status Source [facility] Emergency [id number] Elodia Cuevasqi 02/01/2016 02/01/2016 [facility] Procedures No Data Provided for This Section Assessment and Plan No Data Provided for This Section Plan of Care No Data Provided for This Section Social History Social History Date Source Social History TypeResponse Smoking Status Never smoker; Ready to change: No; Concerns about tobacco use in household: No; Exposure to Tobacco Smoke None; Cigarette Smoking Last 365 Days No; Reg Smoking Cessation Counseling No 02/01/2016 [facility] Family History No Data Provided for This Section Advance Directives No Data Provided for This Section Functional Status No Data Provided for This Section
[2020-02-11 05:33] LABS: ALANINE AMINOTRANSFERASE 12 IU/L (0-55); ALBUMIN 4.3 g/dL (3.5-5.0); ALBUMIN/GLOBULIN RATIO 1.7 (0.8-2.0); ALKALINE PHOSPHATASE 50 IU/L (40-150); ANION GAP 16.1 mmol/L (8-16); BLOOD UREA NITROGEN 11 mg/dL (7-26); BUN/CREATININE RATIO 14 (6-25); CALCIUM 9.1 mg/dL (8.4-10.2); CARBON DIOXIDE 20 mmol/L (22-29); CHLORIDE 106 mmol/L (98-107); CREATINE KINASE 258 IU/L (29-168); EST GLOMERULAR FILTRATION RATE > 60 ML/MIN (60-); GLUCOSE 104 mg/dL (74-118); POTASSIUM 3.1 mmol/L (3.5-5.1); SODIUM 139 mmol/L (136-145)
--- NOTE | 2020-02-11 05:50 | NUR ---
pt requested to leave at this time. informed. ordered to discharge. ua and cxr cancelled. iv dc'd c gauze dressing applied.
== END 2020-02-11 05:57 | disposition home or self-care (01) ==
LOC: ER 04:53
DX: R00.2 Palpitations (principal); F41.9 Anxiety disorder, unspecified
CPT/HCPCS: 36415; 80053; 82550; 82553; 83880; 84484; 84702; 85025; 93005; 99283

== ENCOUNTER 2020-04-28 18:37 | Emergency (ER) | payer SELFPAY ==
[~2020-04-28] VITALS: Ht 162.6 cm; Wt 54.4 kg
== END 2020-04-28 22:30 | disposition home or self-care (01) ==
LOC: ER 19:29
DX: F41.9 Anxiety disorder, unspecified (principal)
CPT/HCPCS: 99282

== ENCOUNTER 2024-09-13 19:30 | Emergency (ER) | payer OTHER ==
[~2024-09-13] VITALS: Ht 157.5 cm; Wt 65.8 kg
[2024-09-13 20:53] VITALS: PULSE 89; RESP 18; TEMP 98.7
[2024-09-13 20:59] LABS: BASOPHILS % 0.3 % (0.0-1.0); EOSINOPHILS # (AUTO) 0.3 (0.0-0.4); EOSINOPHILS % 4.3 % (0.0-6.0); HEMATOCRIT 35.1 % (34.2-44.1); HEMOGLOBIN 11.5 g/dL (12.0-16.0); LYMPHOCYTES # (AUTO) 2.3 (1.0-3.2); LYMPHOCYTES % 39.9 % (18.0-39.1); MEAN CORPUSCULAR HGB CONC 32.8 g/dL (31-35); MEAN CORPUSCULAR VOLUME 91.6 fL (81-99); MONOCYTES # (AUTO) 0.6 (0.2-0.8); MONOCYTES % 9.7 % (4.4-11.3); NEUTROPHILS # (AUTO) 2.6 (2.1-6.9); NEUTROPHILS % 45.5 % (38.7-80.0); PLATELET COUNT 239 x10e3/uL (140-360); RED BLOOD COUNT 3.83 x10e6/uL (3.6-5.1); RED CELL DISTRIBUTION WIDTH 14.8 % (11.7-14.4); WHITE BLOOD COUNT 5.76 x10e3/uL (4.8-10.8)
[2024-09-13 21:22] LABS: ALBUMIN 4.1 g/dL (3.5-5.0); ALBUMIN/GLOBULIN RATIO 1.3 (0.8-2.0); ANION GAP 18.1 mmol/L (8-16); BILIRUBIN,TOTAL 0.6 mg/dL (0.2-1.2); CALCIUM 9.1 mg/dL (8.4-10.2); CREATININE, SERUM 0.83 mg/dL (0.57-1.11); POTASSIUM 4.1 mmol/L (3.5-5.1); TOTAL PROTEIN 7.2 g/dL (6.5-8.1)
[2024-09-14 03:28] LABS: CLARITY,URINE CLEAR (CLEAR); COLOR,URINE YELLOW (YELLOW)
[2024-09-14 03:29] LABS: GLUCOSE, URINE NEGATIVE (NEGATIVE); KETONES,URINE NEGATIVE (NEGATIVE); LEUKOCYTE ESTERASE ,URINE NEGATIVE (NEGATIVE); NITRITE,URINE NEGATIVE (NEGATIVE); OPIATES SCREEN,URINE NEGATIVE (NEGATIVE); PH,URINE 5.5 (5 - 7); PHENCYCLIDINE SCREEN,URINE NEGATIVE (NEGATIVE); PROTEIN,URINE DIPSTICK TRACE (NEGATIVE)
[2024-09-14 03:30] LABS: AMPHETAMINES SCREEN,URINE POSITIVE (NEGATIVE); BENZODIAZEPINES SCREEN,URINE POSITIVE (NEGATIVE); BILIRUBIN,URINE SMALL (NEGATIVE); CANNABINOIDS SCREEN,URINE NEGATIVE (NEGATIVE); COCAINE SCREEN,URINE NEGATIVE (NEGATIVE); METHADONE SCREEN, URINE POSITIVE (NEGATIVE); URINE UROBILINOGEN 0.2 mg/dL (0.2 - 1)
[2024-09-14 03:33] LABS: BACTERIA,URINE MANY /HPF; EPITHELIAL CELLS,URINE MODERATE /LPF; RBC,URINE 0-5 /HPF (0-5); WBC,URINE (MAN) 0-5 /HPF (0-5)
[2024-09-14 06:36] VITALS: BP 127/82; O2SAT 100
== END 2024-09-14 06:15 | disposition home or self-care (01) ==
LOC: ER 21:18
DX: F13.10 Sedative, hypnotic or anxiolytic abuse, uncomplicated (principal); F41.9 Anxiety disorder, unspecified; F32.A Depression, unspecified; F17.210 Nicotine dependence, cigarettes, uncomplicated
CPT/HCPCS: 36415; 80053; 80307; 80320; 81001; 85025; 99284

== ENCOUNTER 2024-11-30 10:27 | Emergency (ER) | payer MEDICAID ==
[~2024-11-30] VITALS: Ht 157.5 cm; Wt 65.8 kg
[2024-11-30 10:37] VITALS: TEMP 97.9
[2024-11-30] MEDS ORDERED: NALOXONE HCL INJ 0.4 MG/ML AMP IV PRN (11:00)
[2024-11-30 11:33] LABS: BASOPHILS % 0.5 % (0.0-1.0); EOSINOPHILS % 1.7 % (0.0-6.0); LYMPHOCYTES % 19.7 % (18.0-39.1); MONOCYTES % 6.3 % (4.4-11.3); NEUTROPHILS % 71.4 % (38.7-80.0); RED CELL DISTRIBUTION WIDTH 13.2 % (11.7-14.4)
[2024-11-30 11:52] LABS: LEUKOCYTE ESTERASE ,URINE TRACE (NEGATIVE); PROTEIN,URINE DIPSTICK NEGATIVE (NEGATIVE)
[2024-11-30] MEDS: SODIUM CHLORIDE 0.9% 1000ML 1,000 ML IV SCH (11:52)
[2024-11-30 11:53] LABS: OPIATES SCREEN,URINE NEGATIVE (NEGATIVE)
[2024-11-30 11:54] LABS: AMPHETAMINES SCREEN,URINE POSITIVE (NEGATIVE); CANNABINOIDS SCREEN,URINE NEGATIVE (NEGATIVE); COCAINE SCREEN,URINE NEGATIVE (NEGATIVE); METHADONE SCREEN, URINE NEGATIVE (NEGATIVE); URINE UROBILINOGEN 0.2 mg/dL (0.2 - 1)
[2024-11-30 11:55] LABS: EPITHELIAL CELLS,URINE MODERATE /LPF; WBC,URINE (MAN) 21-50 /HPF (0-5)
[2024-11-30 12:04] LABS: EST GLOMERULAR FILTRATION RATE 98.0 ML/MIN (>=60)
[2024-11-30 12:06] LABS: ETHANOL < 10.0 mg/dL (0.0-10.0)
[2024-11-30 13:29] VITALS: PULSE 75; RESP 18; O2SAT 100
[2024-11-30] MEDS ORDERED: CEFDINIR300 MG PO (14:11)
== END 2024-11-30 15:20 | disposition home or self-care (01) ==
LOC: ER 10:30
DX: F15.10 Other stimulant abuse, uncomplicated (principal); F11.10 Opioid abuse, uncomplicated; N39.0 Urinary tract infection, site not specified
CPT/HCPCS: 36415; 80053; 80307; 80320; 80329 ×2; 81001; 84702; 85025; 99284; J7030